=== PATIENT | male | born 1950 | race Caucasian/White ===

== ENCOUNTER 2018-09-01 17:34 | Emergency (ER) | payer MEDICARE, BC, SELFPAY ==
[2018-09-01 17:43] VITALS: BP 147/70; PULSE 80; RESP 20; TEMP 36.1; O2SAT 98
--- NOTE | 2018-09-01 17:50 | DI.RAD.S_ITS ---
PROCEDURE: XR CHEST 1V INDICATIONS: chest pain TECHNIQUE: One view of the chest was acquired. COMPARISON: None. FINDINGS: Surgical changes and devices: None. Lungs and pleura: No pleural effusions or pneumothorax. Lungs are clear. Mediastinum: Mediastinal contours appear normal. Heart size is normal. Bones and chest wall: No suspicious bony lesions. Age-appropriate bony degenerative changes are seen. Overlying soft tissues appear unremarkable. IMPRESSION: Portable chest within normal limits. Dictated by: Mike Maloney M.D. on 09/01/2018 at 17:00 Approved by: Mike Maloney M.D. on 09/01/2018 at 17:00
[2018-09-01] MEDS: SODIUM CHLORIDE 0.9% 1,000 ML 1000 ML IV ×2 (18:13→19:19)
--- NOTE | 2018-09-01 18:20 | ED.WEAKNESS ---
HPI - Weakness <WOLFGANG Townsend - Last Filed: 09/01/18 20:26> General Chief complaint: Weakness Stated complaint: Blood sugar elevated Time Seen by Provider: 09/01/18 17:51 Source: patient and family Mode of arrival: ambulatory Limitations: no limitations History of Present Illness HPI Narrative: Patient is a 68-year-old male with a history of hypertension who presents with his with a chief complaint of ?I think I have diabetes.? He has never been diagnosed with diabetes. He states that for the past 4-6 weeks he has been drinking and urinating a lot and feeling very fatigued. He denies any current chest pressure but complains of ?noncardiac chest pressure while using a chain saw recently. He checked his blood sugar this morning after hot chocolate and it was in the 300s. Prior to his arrival in the emergency department his blood sugar was 285. He denies any abdominal pain, nausea, vomiting, diarrhea. He states about 4-6 years ago his fasting blood sugars were elevated to almost 200. He then lost about 40 lb, but regained that recently. He states about 2 months ago, his fasting blood sugar was 138. Related Data Home Medications Medication Instructions Recorded Confirmed allopurinol 300 mg PO DAILY 09/01/18 09/01/18 atenolol 25 mg PO DAILY 09/01/18 09/01/18 atorvastatin 10 mg PO DAILY 09/01/18 09/01/18 losartan 50 mg PO BID 09/01/18 09/01/18 Previous Rx's Medication Instructions Recorded metformin 500 mg PO BID #30 tab 09/01/18 Allergies Allergy/AdvReac Type Severity Reaction Status Date / Time acetaminophen [From Vicodin] Allergy Hives Verified 09/01/18 17:55 hydrocodone [From Vicodin] Allergy Hives Verified 09/01/18 17:55 Review of Systems <WOLFGANG Townsend - Last Filed: 09/01/18 20:26> Review of Systems GENERAL: Denies chills, fatigue, malaise, fever, sweats. HEENT: Denies sinus pain, ear pain, sore throat, difficulty swallowing, dizziness. RESPIRATORY: Denies dyspnea, cough, wheezing, hemoptysis, sputum. CARDIOVASCULAR: See HPI GASTROINTESTINAL: See HPI : See HPI MUSCULOSKELETAL: denies weakness, joint pain, or bony pain SKIN: Denies rash, skin lesions, or other NEUROLOGIC: Denies weakness, headache, numbness, change in speech, confusion, seizures, incoordination. PSYCHIATRIC: No concerning psychosocial issues. 12 point review of systems is negative except for those stated above Exam <LARISA Townsend-BC - Last Filed: 09/01/18 20:26> Narrative Exam Narrative: For the S GENERAL: This is a well-nourished, well-developed patient, in no acute distress HEAD: Atraumatic. Normocephalic. No temporal or scalp tenderness. EYES: Pupils equal round and reactive. Extraocular motions intact. No scleral icterus. No injection or drainage. ENT: Nose without bleeding, purulent drainage or septal hematoma. Throat without erythema, tonsillar hypertrophy or exudate. Uvula midline. Airway patent. NECK: Trachea midline. No JVD or lymphadenopathy. Supple, nontender, no meningeal signs. CARDIOVASCULAR: Regular rate and rhythm without murmurs, gallops, or rubs. RESPIRATORY: Clear to auscultation. Breath sounds equal bilaterally. No wheezes, rales, or rhonchi. GASTROINTESTINAL: Abdomen soft, non-tender, nondistended. No hepato-splenomegaly, or palpable masses. No guarding. Active bowel sounds all 4 quadrants. EXTREMITIES: No clubbing, cyanosis, or edema. No joint tenderness, effusion, or edema noted. BACK: Nontender without deformity or crepitance. No flank tenderness. NEURO: AOx3. Steady gait. Using all extremities bilaterally. SKIN: No rash or erythema. Initial Vital Signs Initial Vital Signs: Vital Signs Temperature 97.0 F L 09/01/18 17:43 Pulse Rate 80 09/01/18 17:43 Respiratory Rate 20 09/01/18 17:43 Blood Pressure 147/70 H 09/01/18 17:43 Pulse Oximetry 98 09/01/18 17:43 <Fabi So DO - Last Filed: 09/02/18 05:05> Initial Vital Signs Initial Vital Signs: Vital Signs Temperature 97.0 F L 09/01/18 17:43 Pulse Rate 80 09/01/18 17:43 Respiratory Rate 20 09/01/18 17:43 Blood Pressure 147/70 H 09/01/18 17:43 Pulse Oximetry 98 09/01/18 17:43 Course <WOLFGANG Townsend - Last Filed: 09/01/18 20:26> Course Narrative: I checked on the patient several times that his stay in the emergency department. Orders Ordered: Discontinued Medications Sodium Chloride (Normal Saline 0.9%) 1,000 mls @ 1,000 mls/hr IV BOLUS ONE Stop: 09/01/18 18:50 Last Infusion: 09/01/18 19:10 Dose: 0 mls/hr Admin: 09/01/18 18:13 Dose: 1,000 mls/hr Sodium Chloride (Normal Saline 0.9%) 1,000 mls @ 1,000 mls/hr IV BOLUS ONE Stop: 09/01/18 19:56 Last Infusion: 09/01/18 20:31 Dose: 0 mls/hr Admin: 09/01/18 19:19 Dose: 1,000 mls/hr Vital Signs - 8 hr 09/01/18 17:43 09/01/18 19:50 Temperature 97.0 F L 97.5 F L Pulse Rate 80 61 Respiratory Rate 20 17 Blood Pressure 147/70 H Blood Pressure [Left Arm] 125/59 L Pulse Oximetry 98 100 <Fabi So DO - Last Filed: 09/02/18 05:05> Orders Ordered: Discontinued Medications Sodium Chloride (Normal Saline 0.9%) 1,000 mls @ 1,000 mls/hr IV BOLUS ONE Stop: 09/01/18 18:50 Last Infusion: 09/01/18 19:10 Dose: 0 mls/hr Admin: 09/01/18 18:13 Dose: 1,000 mls/hr Sodium Chloride (Normal Saline 0.9%) 1,000 mls @ 1,000 mls/hr IV BOLUS ONE Stop: 09/01/18 19:56 Last Infusion: 09/01/18 20:31 Dose: 0 mls/hr Admin: 09/01/18 19:19 Dose: 1,000 mls/hr Vital Signs - 8 hr 09/01/18 17:43 09/01/18 19:50 Temperature 97.0 F L 97.5 F L Pulse Rate 80 61 Respiratory Rate 20 17 Blood Pressure 147/70 H Blood Pressure [Left Arm] 125/59 L Pulse Oximetry 98 100 MDM - Weakness <WOLFGANG Townsend - Last Filed: 09/01/18 20:26> Lab Data Result diagrams: 09/01/18 18:17 09/01/18 18:17 Lab Results 09/01/18 09/01/18 09/01/18 Range/Units 18:17 18:17 18:17 WBC 5.1 (4.5-11.0) X10^3/uL RBC 4.81 (4.5-5.9) X10^6/uL Hgb 15.1 (13.5-17.5) g/dL Hct 42.4 (41-53) % MCV 88.0 (80-100) fL MCH 31.4 (26-34) PG MCHC 35.6 (30-36) % RDW 13.6 (11.6-14.8) % Plt Count 166 (150-400) X10^3/uL Neut % (Auto) 66.1 (50-75) % Lymph % (Auto) 24.9 L (25-40) % Morris % (Auto) 6.7 (3-14) % Eos % (Auto) 1.6 L (2-4) % Baso % (Auto) 0.7 (0-2) % Neut # (Auto) 3400 (2097-0613) /uL PT 11.7 (10.1-12.7) SECONDS INR 1.0 (0.9-1.3) APTT 30 (26.4-36.2) SECONDS Sodium 140 (137-145) mmol/L Potassium 4.3 (3.4-5.1) mmol/L Chloride 103 (98-107) mmol/L Carbon Dioxide 26 (22-32) mmol/L BUN 18 (9-20) mg/dL Creatinine 0.90 (0.66-1.25) mg/dL Estimated GFR > 60.0 (>60) mL/min BUN/Creatinine Ratio 20.0 (6-22) Glucose 302 H (80-110) mg/dL Calcium 9.6 (8.4-10.2) mg/dL Total Bilirubin 0.5 (0.2-1.3) mg/dL AST 38 (17-59) IU/L ALT 69 (21-72) IU/L Alkaline Phosphatase 82 (38-126) U/L Total Creatine Kinase 31 L (55-170) U/L CK-MB (CK-2) TNP CK-MB (CK-2) Rel Index TNP Troponin I < 0.012 (0.01-0.034) ng/mL B-Natriuretic Peptide (<100) Total Protein 6.8 (6.3-8.2) g/dL Albumin 4.2 (3.5-5.0) g/dL Globulin 2.6 (1.7-4.1) g/dL Albumin/Globulin Ratio 1.6 (1.0-2.8) Lipase 39 (23-300) U/L 09/01/18 Range/Units 18:17 WBC (4.5-11.0) X10^3/uL RBC (4.5-5.9) X10^6/uL Hgb (13.5-17.5) g/dL Hct (41-53) % MCV (80-100) fL MCH (26-34) PG MCHC (30-36) % RDW (11.6-14.8) % Plt Count (150-400) X10^3/uL Neut % (Auto) (50-75) % Lymph % (Auto) (25-40) % Morris % (Auto) (3-14) % Eos % (Auto) (2-4) % Baso % (Auto) (0-2) % Neut # (Auto) (2560-3886) /uL PT (10.1-12.7) SECONDS INR (0.9-1.3) APTT (26.4-36.2) SECONDS Sodium (137-145) mmol/L Potassium (3.4-5.1) mmol/L Chloride (98-107) mmol/L Carbon Dioxide (22-32) mmol/L BUN (9-20) mg/dL Creatinine (0.66-1.25) mg/dL Estimated GFR (>60) mL/min BUN/Creatinine Ratio (6-22) Glucose (80-110) mg/dL Calcium (8.4-10.2) mg/dL Total Bilirubin (0.2-1.3) mg/dL AST (17-59) IU/L ALT (21-72) IU/L Alkaline Phosphatase (38-126) U/L Total Creatine Kinase (55-170) U/L CK-MB (CK-2) CK-MB (CK-2) Rel Index Troponin I (0.01-0.034) ng/mL B-Natriuretic Peptide < 100 (<100) Total Protein (6.3-8.2) g/dL Albumin (3.5-5.0) g/dL Globulin (1.7-4.1) g/dL Albumin/Globulin Ratio (1.0-2.8) Lipase (23-300) U/L Point of Care Testing Glucose POC 246 Urine Dip Bedside Urine Glucose 1000 mg/dl Bedside Urine Bilirubin - Negative Bedside Urine Ketone ++ 40 Urine Specific [place] 1.025 Bedside Urine Occult Blood - Negative Bedside Urine pH 6.0 Bedside Urine Protein - Negative Bedside Urine Urobilinogen - Negative Bedside Urine Nitrite - Negative Bedside Urine Leukocytes - Negative Esterase Imaging Data Chest x-ray: Radiologist's impression: View Report History [address] [address] XRay Report Signed Patient: Dmitriy Wallace MR#: [id number] : 1950 Acct:[id number] Age/Sex: 68 / M Date of Service: 09/01/18 Loc: ED Accession Number: [id number] Procedure: XR chest 1V Ordering Provider: Fabi Garcia PROCEDURE: XR CHEST 1V INDICATIONS: chest pain TECHNIQUE: One view of the chest was acquired. COMPARISON: None. FINDINGS: Surgical changes and devices: None. Lungs and pleura: No pleural effusions or pneumothorax. Lungs are clear. Mediastinum: Mediastinal contours appear normal. Heart size is normal. Bones and chest wall: No suspicious bony lesions. Age-appropriate bony degenerative changes are seen. Overlying soft tissues appear unremarkable. IMPRESSION: Portable chest within normal limits. Dictated by: Mike Maloney M.D. on 09/01/2018 at 17:00 Approved by: Mike Maloney M.D. on 09/01/2018 at 17:00 ECG Data Attestation: I personally reviewed and interpreted this ECG as follows: Interpretation: Sinus rhythm. Ventricular rate 71. No ST elevation or depression noted. No ectopy noted. MDM Narrative Medical decision making narrative: Patient is a 68-year-old male who presents with a chief complaint of weakness and concern for high blood sugar. He noticed high blood sugar readings at up to 370. Denies history of diabetes. This an IV was started, we did a CBC, CMP, troponin and UA. He has no evidence of renal failure, acute [place], DKA. He is hemodynamically stable emergency department. After 2 L of normal saline, his blood sugar came down to about 250. Thus I discussed at length with him that he urgently needs to follow up with his primary care provider for further evaluation and workup of possible type 2 diabetes. Given his elevated blood sugars as well as lack of renal issues, I am starting him on metformin 500 mg b.i.d.. I discussed at length that there are some GI side effects for this. I discussed coming back to the emergency department for any acute concerns including chest pain or shortness of breath. Patient and his had no questions or concerns upon discharge. <Fabi So, DO - Last Filed: 09/02/18 05:05> Lab Data Lab Results 09/01/18 09/01/18 09/01/18 Range/Units 18:17 18:17 18:17 WBC 5.1 (4.5-11.0) X10^3/uL RBC 4.81 (4.5-5.9) X10^6/uL Hgb 15.1 (13.5-17.5) g/dL Hct 42.4 (41-53) % MCV 88.0 (80-100) fL MCH 31.4 (26-34) PG MCHC 35.6 (30-36) % RDW 13.6 (11.6-14.8) % Plt Count 166 (150-400) X10^3/uL Neut % (Auto) 66.1 (50-75) % Lymph % (Auto) 24.9 L (25-40) % Morris % (Auto) 6.7 (3-14) % Eos % (Auto) 1.6 L (2-4) % Baso % (Auto) 0.7 (0-2) % Neut # (Auto) 3400 (8337-6624) /uL PT 11.7 (10.1-12.7) SECONDS INR 1.0 (0.9-1.3) APTT 30 (26.4-36.2) SECONDS Sodium 140 (137-145) mmol/L Potassium 4.3 (3.4-5.1) mmol/L Chloride 103 (98-107) mmol/L Carbon Dioxide 26 (22-32) mmol/L BUN 18 (9-20) mg/dL Creatinine 0.90 (0.66-1.25) mg/dL Estimated GFR > 60.0 (>60) mL/min BUN/Creatinine Ratio 20.0 (6-22) Glucose 302 H (80-110) mg/dL Calcium 9.6 (8.4-10.2) mg/dL Total Bilirubin 0.5 (0.2-1.3) mg/dL AST 38 (17-59) IU/L ALT 69 (21-72) IU/L Alkaline Phosphatase 82 (38-126) U/L Total Creatine Kinase 31 L (55-170) U/L CK-MB (CK-2) TNP CK-MB (CK-2) Rel Index TNP Troponin I < 0.012 (0.01-0.034) ng/mL B-Natriuretic Peptide (<100) Total Protein 6.8 (6.3-8.2) g/dL Albumin 4.2 (3.5-5.0) g/dL Globulin 2.6 (1.7-4.1) g/dL Albumin/Globulin Ratio 1.6 (1.0-2.8) Lipase 39 (23-300) U/L 09/01/18 Range/Units 18:17 WBC (4.5-11.0) X10^3/uL RBC (4.5-5.9) X10^6/uL Hgb (13.5-17.5) g/dL Hct (41-53) % MCV (80-100) fL MCH (26-34) PG MCHC (30-36) % RDW (11.6-14.8) % Plt Count (150-400) X10^3/uL Neut % (Auto) (50-75) % Lymph % (Auto) (25-40) % Morris % (Auto) (3-14) % Eos % (Auto) (2-4) % Baso % (Auto) (0-2) % Neut # (Auto) (7234-6783) /uL PT (10.1-12.7) SECONDS INR (0.9-1.3) APTT (26.4-36.2) SECONDS Sodium (137-145) mmol/L Potassium (3.4-5.1) mmol/L Chloride (98-107) mmol/L Carbon Dioxide (22-32) mmol/L BUN (9-20) mg/dL Creatinine (0.66-1.25) mg/dL Estimated GFR (>60) mL/min BUN/Creatinine Ratio (6-22) Glucose (80-110) mg/dL Calcium (8.4-10.2) mg/dL Total Bilirubin (0.2-1.3) mg/dL AST (17-59) IU/L ALT (21-72) IU/L Alkaline Phosphatase (38-126) U/L Total Creatine Kinase (55-170) U/L CK-MB (CK-2) CK-MB (CK-2) Rel Index Troponin I (0.01-0.034) ng/mL B-Natriuretic Peptide < 100 (<100) Total Protein (6.3-8.2) g/dL Albumin (3.5-5.0) g/dL Globulin (1.7-4.1) g/dL Albumin/Globulin Ratio (1.0-2.8) Lipase (23-300) U/L Point of Care Testing Glucose POC 246 Urine Dip Bedside Urine Glucose 1000 mg/dl Bedside Urine Bilirubin - Negative Bedside Urine Ketone ++ 40 Urine Specific [place] 1.025 Bedside Urine Occult Blood - Negative Bedside Urine pH 6.0 Bedside Urine Protein - Negative Bedside Urine Urobilinogen - Negative Bedside Urine Nitrite - Negative Bedside Urine Leukocytes - Negative Esterase Discharge Plan Departure Patient Disposition: Home Clinical Impression: Elevated blood sugar Discharge Date/Time: 09/01/18 20:30 Interventions: ED Discharge Assessment Last Done: 09/01/18 20:30 Instructions: Lifestyle Changes as Effective as Drugs in Preventing Progression to Diabet, 'Diet Plate' May Help People With Diabetes Lose Weight, DI for Diabetes Type 2, Diet Soda Intake Linked to Increase Risk of Type 2 Diabetes, What to Eat if You Have Diabetes Activity Restrictions/Additional Instructions: Your blood sugar has come back elevated on our testing today. However your kidney function is good, your heart enzymes came back normal, and your EKG is good. Given her elevated blood sugar combined with her previously high measurements, I have given you a prescription for metformin. You can take this twice a day to help with your blood sugars. Please follow-up with your primary care provider as soon as you get home. Please come back to the emergency department for any acute concerns Prescriptions: New metformin 500 mg tablet 500 mg PO BID Qty: 30 RF: 0 No Action losartan 50 mg Tablet 50 mg PO BID RF: 0 atorvastatin 10 mg Tablet 10 mg PO DAILY RF: 0 atenolol 25 mg Tablet 25 mg PO DAILY RF: 0 allopurinol 300 mg Tablet 300 mg PO DAILY RF: 0 <Fabi So DO - Last Filed: 09/02/18 05:05> Cosign ED Attending Cosignature Attestation: I was immediately available in the department for consultation, case was discussed and plan for treatment of DM, patient does not live locally and will f/u with pcp. This documentation has been reviewed and I agree with assessment and plan. Supervised by Fabi So DO
[2018-09-01 18:24] LABS: Add Manual Diff / Slide Review NO; Basophils Percent Auto 0.7 % (0-2); Eosinophils Percent Auto 1.6 % (2-4); Hematocrit 42.4 % (41-53); Hemoglobin 15.1 g/dL (13.5-17.5); Lymphocytes Percent Auto 24.9 % (25-40); Mean Corpuscular HGB Conc 35.6 % (30-36); Mean Corpuscular Hemoglobin 31.4 PG (26-34); Monocytes Percent Auto 6.7 % (3-14); Neutrophils Absolute Auto 3400 /uL (1500-7000); Neutrophils Percent Auto 66.1 % (50-75); Platelet Count 166 X10^3/uL (150-400); Red Blood Cell Count 4.81 X10^6/uL (4.5-5.9); Red Cell Distribution Width 13.6 % (11.6-14.8); White Blood Cell Count 5.1 X10^3/uL (4.5-11.0)
--- NOTE | 2018-09-01 18:25 | ED_ITS ---
HPI - Weakness <WOLFGANG Townsend - Last Filed: 09/01/18 20:26> General Chief complaint: Weakness Stated complaint: Blood sugar elevated Time Seen by Provider: 09/01/18 17:51 Source: patient and family Mode of arrival: ambulatory Limitations: no limitations History of Present Illness HPI Narrative: Patient is a 68-year-old male with a history of hypertension who presents with his with a chief complaint of ?I think I have diabetes.? He has never been diagnosed with diabetes. He states that for the past 4-6 weeks he has been drinking and urinating a lot and feeling very fatigued. He denies any current chest pressure but complains of ?noncardiac chest pressure while using a chain saw recently. He checked his blood sugar this morning after hot chocolate and it was in the 300s. Prior to his arrival in the emergency department his blood sugar was 285. He denies any abdominal pain, nausea, vomiting, diarrhea. He states about 4-6 years ago his fasting blood sugars were elevated to almost 200. He then lost about 40 lb, but regained that recently. He states about 2 months ago, his fasting blood sugar was 138. Related Data Home Medications Medication Instructions Recorded Confirmed allopurinol 300 mg PO DAILY 09/01/18 09/01/18 atenolol 25 mg PO DAILY 09/01/18 09/01/18 atorvastatin 10 mg PO DAILY 09/01/18 09/01/18 losartan 50 mg PO BID 09/01/18 09/01/18 Previous Rx's Medication Instructions Recorded metformin 500 mg PO BID #30 tab 09/01/18 Allergies Allergy/AdvReac Type Severity Reaction Status Date / Time acetaminophen [From Vicodin] Allergy Hives Verified 09/01/18 17:55 hydrocodone [From Vicodin] Allergy Hives Verified 09/01/18 17:55 Review of Systems <WOLFGANG Townsend - Last Filed: 09/01/18 20:26> Review of Systems GENERAL: Denies chills, fatigue, malaise, fever, sweats. HEENT: Denies sinus pain, ear pain, sore throat, difficulty swallowing, dizziness. RESPIRATORY: Denies dyspnea, cough, wheezing, hemoptysis, sputum. CARDIOVASCULAR: See HPI GASTROINTESTINAL: See HPI : See HPI MUSCULOSKELETAL: denies weakness, joint pain, or bony pain SKIN: Denies rash, skin lesions, or other NEUROLOGIC: Denies weakness, headache, numbness, change in speech, confusion, seizures, incoordination. PSYCHIATRIC: No concerning psychosocial issues. 12 point review of systems is negative except for those stated above Exam <LARISA Townsend-BC - Last Filed: 09/01/18 20:26> Narrative Exam Narrative: For the S GENERAL: This is a well-nourished, well-developed patient, in no acute distress HEAD: Atraumatic. Normocephalic. No temporal or scalp tenderness. EYES: Pupils equal round and reactive. Extraocular motions intact. No scleral icterus. No injection or drainage. ENT: Nose without bleeding, purulent drainage or septal hematoma. Throat without erythema, tonsillar hypertrophy or exudate. Uvula midline. Airway patent. NECK: Trachea midline. No JVD or lymphadenopathy. Supple, nontender, no meningeal signs. CARDIOVASCULAR: Regular rate and rhythm without murmurs, gallops, or rubs. RESPIRATORY: Clear to auscultation. Breath sounds equal bilaterally. No wheezes , rales, or rhonchi. GASTROINTESTINAL: Abdomen soft, non-tender, nondistended. No hepato-splenomegaly , or palpable masses. No guarding. Active bowel sounds all 4 quadrants. EXTREMITIES: No clubbing, cyanosis, or edema. No joint tenderness, effusion, or edema noted. BACK: Nontender without deformity or crepitance. No flank tenderness. NEURO: AOx3. Steady gait. Using all extremities bilaterally. SKIN: No rash or erythema. Initial Vital Signs Initial Vital Signs: Vital Signs Temperature 97.0 F L 09/01/18 17:43 Pulse Rate 80 09/01/18 17:43 Respiratory Rate 20 09/01/18 17:43 Blood Pressure 147/70 H 09/01/18 17:43 Pulse Oximetry 98 09/01/18 17:43 <Fabi So DO - Last Filed: 09/02/18 05:05> Initial Vital Signs Initial Vital Signs: Vital Signs Temperature 97.0 F L 09/01/18 17:43 Pulse Rate 80 09/01/18 17:43 Respiratory Rate 20 09/01/18 17:43 Blood Pressure 147/70 H 09/01/18 17:43 Pulse Oximetry 98 09/01/18 17:43 Course <WOLFGANG Townsend - Last Filed: 09/01/18 20:26> Course Narrative: I checked on the patient several times that his stay in the emergency department. Orders Ordered: Discontinued Medications Sodium Chloride (Normal Saline 0.9%) 1,000 mls @ 1,000 mls/hr IV BOLUS ONE Stop: 09/01/18 18:50 Last Infusion: 09/01/18 19:10 Dose: 0 mls/hr Admin: 09/01/18 18:13 Dose: 1,000 mls/hr Sodium Chloride (Normal Saline 0.9%) 1,000 mls @ 1,000 mls/hr IV BOLUS ONE Stop: 09/01/18 19:56 Last Infusion: 09/01/18 20:31 Dose: 0 mls/hr Admin: 09/01/18 19:19 Dose: 1,000 mls/hr Vital Signs - 8 hr 09/01/18 17:43 09/01/18 19:50 Temperature 97.0 F L 97.5 F L Pulse Rate 80 61 Respiratory Rate 20 17 Blood Pressure 147/70 H Blood Pressure [Left Arm] 125/59 L Pulse Oximetry 98 100 <Fabi So DO - Last Filed: 09/02/18 05:05> Orders Ordered: Discontinued Medications Sodium Chloride (Normal Saline 0.9%) 1,000 mls @ 1,000 mls/hr IV BOLUS ONE Stop: 09/01/18 18:50 Last Infusion: 09/01/18 19:10 Dose: 0 mls/hr Admin: 09/01/18 18:13 Dose: 1,000 mls/hr Sodium Chloride (Normal Saline 0.9%) 1,000 mls @ 1,000 mls/hr IV BOLUS ONE Stop: 09/01/18 19:56 Last Infusion: 09/01/18 20:31 Dose: 0 mls/hr Admin: 09/01/18 19:19 Dose: 1,000 mls/hr Vital Signs - 8 hr 09/01/18 17:43 09/01/18 19:50 Temperature 97.0 F L 97.5 F L Pulse Rate 80 61 Respiratory Rate 20 17 Blood Pressure 147/70 H Blood Pressure [Left Arm] 125/59 L Pulse Oximetry 98 100 MDM - Weakness <WOLFGANG Townsend - Last Filed: 09/01/18 20:26> Lab Data Result diagrams: 09/01/18 18:17 09/01/18 18:17 Lab Results 09/01/18 09/01/18 09/01/18 Range/Units 18:17 18:17 18:17 WBC 5.1 (4.5-11.0) X10^3/uL RBC 4.81 (4.5-5.9) X10^6/uL Hgb 15.1 (13.5-17.5) g/dL Hct 42.4 (41-53) % MCV 88.0 (80-100) fL MCH 31.4 (26-34) PG MCHC 35.6 (30-36) % RDW 13.6 (11.6-14.8) % Plt Count 166 (150-400) X10^3/uL Neut % (Auto) 66.1 (50-75) % Lymph % (Auto) 24.9 L (25-40) % Louisa % (Auto) 6.7 (3-14) % Eos % (Auto) 1.6 L (2-4) % Baso % (Auto) 0.7 (0-2) % Neut # (Auto) 3400 (8827-5881) /uL PT 11.7 (10.1-12.7) SECONDS INR 1.0 (0.9-1.3) APTT 30 (26.4-36.2) SECONDS Sodium 140 (137-145) mmol/L Potassium 4.3 (3.4-5.1) mmol/L Chloride 103 (98-107) mmol/L Carbon Dioxide 26 (22-32) mmol/L BUN 18 (9-20) mg/dL Creatinine 0.90 (0.66-1.25) mg/dL Estimated GFR > 60.0 (>60) mL/min BUN/Creatinine Ratio 20.0 (6-22) Glucose 302 H (80-110) mg/dL Calcium 9.6 (8.4-10.2) mg/dL Total Bilirubin 0.5 (0.2-1.3) mg/dL AST 38 (17-59) IU/L ALT 69 (21-72) IU/L Alkaline Phosphatase 82 (38-126) U/L Total Creatine Kinase 31 L (55-170) U/L CK-MB (CK-2) TNP CK-MB (CK-2) Rel Index TNP Troponin I < 0.012 (0.01-0.034) ng/mL B-Natriuretic Peptide (<100) Total Protein 6.8 (6.3-8.2) g/dL Albumin 4.2 (3.5-5.0) g/dL Globulin 2.6 (1.7-4.1) g/dL Albumin/Globulin Ratio 1.6 (1.0-2.8) Lipase 39 (23-300) U/L 09/01/18 Range/Units 18:17 WBC (4.5-11.0) X10^3/uL RBC (4.5-5.9) X10^6/uL Hgb (13.5-17.5) g/dL Hct (41-53) % MCV (80-100) fL MCH (26-34) PG MCHC (30-36) % RDW (11.6-14.8) % Plt Count (150-400) X10^3/uL Neut % (Auto) (50-75) % Lymph % (Auto) (25-40) % Louisa % (Auto) (3-14) % Eos % (Auto) (2-4) % Baso % (Auto) (0-2) % Neut # (Auto) (9870-6781) /uL PT (10.1-12.7) SECONDS INR (0.9-1.3) APTT (26.4-36.2) SECONDS Sodium (137-145) mmol/L Potassium (3.4-5.1) mmol/L Chloride (98-107) mmol/L Carbon Dioxide (22-32) mmol/L BUN (9-20) mg/dL Creatinine (0.66-1.25) mg/dL Estimated GFR (>60) mL/min BUN/Creatinine Ratio (6-22) Glucose (80-110) mg/dL Calcium (8.4-10.2) mg/dL Total Bilirubin (0.2-1.3) mg/dL AST (17-59) IU/L ALT (21-72) IU/L Alkaline Phosphatase (38-126) U/L Total Creatine Kinase (55-170) U/L CK-MB (CK-2) CK-MB (CK-2) Rel Index Troponin I (0.01-0.034) ng/mL B-Natriuretic Peptide < 100 (<100) Total Protein (6.3-8.2) g/dL Albumin (3.5-5.0) g/dL Globulin (1.7-4.1) g/dL Albumin/Globulin Ratio (1.0-2.8) Lipase (23-300) U/L Point of Care Testing Glucose POC 246 Urine Dip Bedside Urine Glucose 1000 mg/dl Bedside Urine Bilirubin - Negative Bedside Urine Ketone ++ 40 Urine Specific [place] 1.025 Bedside Urine Occult Blood - Negative Bedside Urine pH 6.0 Bedside Urine Protein - Negative Bedside Urine Urobilinogen - Negative Bedside Urine Nitrite - Negative Bedside Urine Leukocytes - Negative Esterase Imaging Data Chest x-ray: Radiologist's impression: View Report History [address] [address] XRay Report Signed Patient: Dmitriy Wallace MR#: [id number] : 1950 Acct:[id number] Age/Sex: 68 / M Date of Service: 09/01/18 Loc: ED Accession Number: [id number] Procedure: XR chest 1V Ordering Provider: Fabi Garcia PROCEDURE: XR CHEST 1V INDICATIONS: chest pain TECHNIQUE: One view of the chest was acquired. COMPARISON: None. FINDINGS: Surgical changes and devices: None. Lungs and pleura: No pleural effusions or pneumothorax. Lungs are clear. Mediastinum: Mediastinal contours appear normal. Heart size is normal. Bones and chest wall: No suspicious bony lesions. Age-appropriate bony degenerative changes are seen. Overlying soft tissues appear unremarkable. IMPRESSION: Portable chest within normal limits. Dictated by: Mike Maloney M.D. on 09/01/2018 at 17:00 Approved by: Mike Maloney M.D. on 09/01/2018 at 17:00 ECG Data Attestation: I personally reviewed and interpreted this ECG as follows: Interpretation: Sinus rhythm. Ventricular rate 71. No ST elevation or depression noted. No ectopy noted. MDM Narrative Medical decision making narrative: Patient is a 68-year-old male who presents with a chief complaint of weakness and concern for high blood sugar. He noticed high blood sugar readings at up to 370. Denies history of diabetes. This an IV was started, we did a CBC, CMP, troponin and UA. He has no evidence of renal failure, acute SC, DKA. He is hemodynamically stable emergency department. After 2 L of normal saline, his blood sugar came down to about 250. Thus I discussed at length with him that he urgently needs to follow up with his primary care provider for further evaluation and workup of possible type 2 diabetes. Given his elevated blood sugars as well as lack of renal issues, I am starting him on metformin 500 mg b.i.d.. I discussed at length that there are some GI side effects for this. I discussed coming back to the emergency department for any acute concerns including chest pain or shortness of breath. Patient and his had no questions or concerns upon discharge. <Fabi So, DO - Last Filed: 09/02/18 05:05> Lab Data Lab Results 09/01/18 09/01/18 09/01/18 Range/Units 18:17 18:17 18:17 WBC 5.1 (4.5-11.0) X10^3/uL RBC 4.81 (4.5-5.9) X10^6/uL Hgb 15.1 (13.5-17.5) g/dL Hct 42.4 (41-53) % MCV 88.0 (80-100) fL MCH 31.4 (26-34) PG MCHC 35.6 (30-36) % RDW 13.6 (11.6-14.8) % Plt Count 166 (150-400) X10^3/uL Neut % (Auto) 66.1 (50-75) % Lymph % (Auto) 24.9 L (25-40) % Louisa % (Auto) 6.7 (3-14) % Eos % (Auto) 1.6 L (2-4) % Baso % (Auto) 0.7 (0-2) % Neut # (Auto) 3400 (8078-4575) /uL PT 11.7 (10.1-12.7) SECONDS INR 1.0 (0.9-1.3) APTT 30 (26.4-36.2) SECONDS Sodium 140 (137-145) mmol/L Potassium 4.3 (3.4-5.1) mmol/L Chloride 103 (98-107) mmol/L Carbon Dioxide 26 (22-32) mmol/L BUN 18 (9-20) mg/dL Creatinine 0.90 (0.66-1.25) mg/dL Estimated GFR > 60.0 (>60) mL/min BUN/Creatinine Ratio 20.0 (6-22) Glucose 302 H (80-110) mg/dL Calcium 9.6 (8.4-10.2) mg/dL Total Bilirubin 0.5 (0.2-1.3) mg/dL AST 38 (17-59) IU/L ALT 69 (21-72) IU/L Alkaline Phosphatase 82 (38-126) U/L Total Creatine Kinase 31 L (55-170) U/L CK-MB (CK-2) TNP CK-MB (CK-2) Rel Index TNP Troponin I < 0.012 (0.01-0.034) ng/mL B-Natriuretic Peptide (<100) Total Protein 6.8 (6.3-8.2) g/dL Albumin 4.2 (3.5-5.0) g/dL Globulin 2.6 (1.7-4.1) g/dL Albumin/Globulin Ratio 1.6 (1.0-2.8) Lipase 39 (23-300) U/L 09/01/18 Range/Units 18:17 WBC (4.5-11.0) X10^3/uL RBC (4.5-5.9) X10^6/uL Hgb (13.5-17.5) g/dL Hct (41-53) % MCV (80-100) fL MCH (26-34) PG MCHC (30-36) % RDW (11.6-14.8) % Plt Count (150-400) X10^3/uL Neut % (Auto) (50-75) % Lymph % (Auto) (25-40) % Louisa % (Auto) (3-14) % Eos % (Auto) (2-4) % Baso % (Auto) (0-2) % Neut # (Auto) (8982-2821) /uL PT (10.1-12.7) SECONDS INR (0.9-1.3) APTT (26.4-36.2) SECONDS Sodium (137-145) mmol/L Potassium (3.4-5.1) mmol/L Chloride (98-107) mmol/L Carbon Dioxide (22-32) mmol/L BUN (9-20) mg/dL Creatinine (0.66-1.25) mg/dL Estimated GFR (>60) mL/min BUN/Creatinine Ratio (6-22) Glucose (80-110) mg/dL Calcium (8.4-10.2) mg/dL Total Bilirubin (0.2-1.3) mg/dL AST (17-59) IU/L ALT (21-72) IU/L Alkaline Phosphatase (38-126) U/L Total Creatine Kinase (55-170) U/L CK-MB (CK-2) CK-MB (CK-2) Rel Index Troponin I (0.01-0.034) ng/mL B-Natriuretic Peptide < 100 (<100) Total Protein (6.3-8.2) g/dL Albumin (3.5-5.0) g/dL Globulin (1.7-4.1) g/dL Albumin/Globulin Ratio (1.0-2.8) Lipase (23-300) U/L Point of Care Testing Glucose POC 246 Urine Dip Bedside Urine Glucose 1000 mg/dl Bedside Urine Bilirubin - Negative Bedside Urine Ketone ++ 40 Urine Specific [place] 1.025 Bedside Urine Occult Blood - Negative Bedside Urine pH 6.0 Bedside Urine Protein - Negative Bedside Urine Urobilinogen - Negative Bedside Urine Nitrite - Negative Bedside Urine Leukocytes - Negative Esterase Discharge Plan Departure Patient Disposition: Home Clinical Impression: Elevated blood sugar Discharge Date/Time: 09/01/18 20:30 Interventions: ED Discharge Assessment Last Done: 09/01/18 20:30 Instructions: Lifestyle Changes as Effective as Drugs in Preventing Progression to Diabet, 'Diet Plate' May Help People With Diabetes Lose Weight, DI for Diabetes Type 2, Diet Soda Intake Linked to Increase Risk of Type 2 Diabetes, What to Eat if You Have Diabetes Activity Restrictions/Additional Instructions: Your blood sugar has come back elevated on our testing today. However your kidney function is good, your heart enzymes came back normal, and your EKG is good. Given her elevated blood sugar combined with her previously high measurements, I have given you a prescription for metformin. You can take this twice a day to help with your blood sugars. Please follow-up with your primary care provider as soon as you get home. Please come back to the emergency department for any acute concerns Prescriptions: New metformin 500 mg tablet 500 mg PO BID Qty: 30 RF: 0 No Action losartan 50 mg Tablet 50 mg PO BID RF: 0 atorvastatin 10 mg Tablet 10 mg PO DAILY RF: 0 atenolol 25 mg Tablet 25 mg PO DAILY RF: 0 allopurinol 300 mg Tablet 300 mg PO DAILY RF: 0 <Fabi So DO - Last Filed: 09/02/18 05:05> Cosign ED Attending Cosignature Attestation: I was immediately available in the department for consultation, case was discussed and plan for treatment of DM, patient does not live locally and will f /u with pcp. This documentation has been reviewed and I agree with assessment and plan. Supervised by Fabi So DO
[2018-09-01 18:30] LABS: Prothrombin Time 11.7 SECONDS (10.1-12.7)
[2018-09-01 18:33] LABS: PTT Partial Thromboplastin Tim 30 SECONDS (26.4-36.2)
[2018-09-01 18:35] LABS: Alanine Aminotransferase 69 IU/L (21-72); Albumin 4.2 g/dL (3.5-5.0); Albumin Globulin Ratio 1.6 (1.0-2.8); Alkaline Phosphatase 82 U/L (38-126); Aspartate Aminotransferase 38 IU/L (17-59); Bilirubin Total 0.5 mg/dL (0.2-1.3); Blood Urea Nitrogen 18 mg/dL (9-20); Calcium 9.6 mg/dL (8.4-10.2); Carbon Dioxide 26 mmol/L (22-32); Chloride 103 mmol/L (98-107); Creatine Kinase 31 U/L (55-170); Estimated Glomerular Filt Rate > 60.0 mL/min (>60); Globulin 2.6 g/dL (1.7-4.1); Glucose 302 mg/dL (80-110); HEMOLYSIS < 15 (0-50); Lipase 39 U/L (23-300); Potassium 4.3 mmol/L (3.4-5.1); Sodium 140 mmol/L (137-145); Total Protein 6.8 g/dL (6.3-8.2)
[2018-09-01 18:46] LABS: B Type Natriuretic Peptide < 100 (<100)
[2018-09-01 18:49] LABS: Troponin I < 0.012 ng/mL (0.01-0.034)
[2018-09-01 19:50] VITALS: BP 125/59; PULSE 61; RESP 17; TEMP 36.4; O2SAT 100
[2018-09-01 20:30] VITALS: BP 124/67; PULSE 58; RESP 16; O2SAT 99
== END 2018-09-01 20:30 | disposition home or self-care (01) ==
PROVIDERS: Emergency Provider Nurse Practitioner Family
DX: R73.9 Hyperglycemia, unspecified (principal)
CPT/HCPCS: 71045; 80053; 81003; 82550; 82962; 83690; 83880; 84484; 85025; 85610; 85730; 93005; 96360; 96361; 99283; 99285